=== PATIENT | female | born 1995 | race Two or more races ===

== ENCOUNTER 2019-12-28 18:56 | Emergency (ER) | payer MEDICAID, OTHER ==
[~2019-12-28] VITALS: Ht 172.7 cm; Wt 112.5 kg
[2019-12-28 19:46] VITALS: BP 128/72
[2019-12-28] MEDS ORDERED: ALBUTEROL SULF 2.5 MG/0.5ML(0.5%) NEB SOLN NEB ONE (21:00)
[2019-12-28] MEDS ORDERED: IPRATROPIUM BROM 0.5 MG/2.5ML INH SOL NEB ONE (21:00)
[2019-12-28] MEDS ORDERED: ACETAMINOPHEN 500 MG TAB PO ONE (22:00)
[2019-12-28] MEDS ORDERED: IBUPROFEN 800 MG TAB PO ONE (22:00)
== END 2019-12-28 21:32 | disposition home or self-care (01) ==
LOC: ER 18:56
DX: J06.9 Acute upper respiratory infection, unspecified (principal); N39.0 Urinary tract infection, site not specified; J45.909 Unspecified asthma, uncomplicated
CPT/HCPCS: 71046; 81002; 81025; 94640; 99283; J7644

== ENCOUNTER 2020-07-02 19:59 | Emergency (ER) | payer MEDICAID ==
[~2020-07-02] VITALS: Ht 172.7 cm; Wt 108.9 kg
[2020-07-02 20:39] VITALS: BP 137/79
== END 2020-07-02 22:37 | disposition home or self-care (01) ==
LOC: ER 20:00
DX: U07.1 COVID-19 (principal); J45.909 Unspecified asthma, uncomplicated
CPT/HCPCS: 36415; 71045; 87426

== ENCOUNTER 2020-07-15 16:44 | Emergency (ER) | payer MEDICAID ==
[~2020-07-15] VITALS: Ht 172.7 cm; Wt 108.9 kg
[2020-07-16] MEDS ORDERED: EPINEPHrine HCL 250 ML IV SCH (01:00)
[2020-07-16 02:22] VITALS: BP 138/82
== END 2020-07-16 02:33 | disposition home or self-care (01) ==
LOC: ER 16:44
DX: U07.1 COVID-19 (principal); J01.00 Acute maxillary sinusitis, unspecified; R07.89 Other chest pain; J45.909 Unspecified asthma, uncomplicated
CPT/HCPCS: 71045; 93005